=== PATIENT | male | born 2000 | race Caucasian/White ===

== ENCOUNTER 2023-04-28 08:48 | Emergency (ER) | payer SELFPAY ==
[2023-04-28] MEDS ORDERED: Ketorolac 30 MG/ML SDV IM ONE (09:05)
== END 2023-04-28 09:58 | disposition home or self-care (01) ==
LOC: MW.ED 08:48
DX: M79.671 Pain in right foot (principal)
CPT/HCPCS: 73610; 73630; 96372; 99283; J1885

== ENCOUNTER 2024-10-10 10:01 | Emergency (ER) | payer BC | END 2024-10-10 13:56 | disposition home or self-care (01) | LOC: MW.ED 10:01 | DX: J06.9 Acute upper respiratory infection, unspecified (principal); Z75.8 Other problems related to medical facilities and other health care | CPT/HCPCS: 71045; 71045-26; 87428-QW; 87651-QW; 99283 ==